=== PATIENT | female | born 1995 | race Caucasian/White ===

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

== ENCOUNTER 2018-02-28 10:31 | Emergency (ER) | payer BC ==
[~2018-02-28] VITALS: Ht 172.7 cm; Wt 68.0 kg
[2018-02-28 10:40] VITALS: BP 128/84
[2018-02-28 11:27] LABS: Urine Bacteria MOD /hpf (None Seen); Urine Blood 1+ /uL (Negative); Urine Mucus FEW (None Seen); Urine Specific Gravity 1.026 (1.001-1.035); Urine WBC 11 /hpf (0 - 5)
== END 2018-02-28 15:02 | disposition home or self-care (01) ==
LOC: ER 10:31
DX: O23.41 Unspecified infection of urinary tract in pregnancy, first trimester (principal); Z3A.01 Less than 8 weeks gestation of pregnancy
CPT/HCPCS: 36415; 76801; 76817; 81001; 81025; 84702